=== PATIENT | female | born 1990 | race Caucasian/White ===

== ENCOUNTER 2020-05-07 14:58 | Emergency (ER) | payer MEDICAID ==
--- NOTE | 2020-05-07 16:02 | EDM.PDOC ---
ED HPI GENERAL MEDICAL PROBLEM - General Chief Complaint: Respiratory Problem Stated Complaint: 35 WEEKS PG/SOB AND COUGHING Time Seen by Provider: 05/07/20 15:22 Source of Information: Reports: Patient History Limitations: Reports: No Limitations - History of Present Illness INITIAL COMMENTS - FREE TEXT/NARRATIVE: Patient is a 29-year-old female presenting to the emergency department with request of being tested for COVID-19. Her daughter has been sick with flulike symptoms and is also being seen in the emergency department. Patient states that yesterday she developed a cough as well as some shortness of breath when she lies flat, however she does generally have shortness of breath lying flat as she is 35 weeks . Patient denies any fever or chills. She is had no abdominal pain, nausea, vomiting or diarrhea. She has no concerns with regard to the at this time. States the baby has been active. - Related Data Allergies Allergy/AdvReac Type Severity Reaction Status Date / Time No Known Allergies Allergy Verified 05/07/20 15:29 Home Meds: Home Meds Famotidine [Acid Controller] 10 mg PO DAILY 05/07/20 [History] Pnv No.95/Ferrous Fum/Folic AC [ Caplet] 1 tab PO DAILY 05/07/20 [History] Past Medical History Musculoskeletal 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: Fibromyalgia, RA - Infectious Disease History Infectious Disease 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: None Social & Family History - Tobacco Use Smoking Status *Q: Never Smoker Second Hand Smoke Exposure: No - Caffeine Use Caffeine Use: Reports: None - Recreational Drug Use Recreational Drug Use: No ED ROS GENERAL - Review of Systems Review Of Systems: See Below Constitutional: Reports: No Symptoms. Denies: Fever, Chills, Weakness HEENT: Reports: No Symptoms Respiratory: Reports: Shortness of Breath, Cough Cardiovascular: Reports: No Symptoms Endocrine: Reports: No Symptoms GI/Abdominal: Reports: No Symptoms : Reports: No Symptoms Musculoskeletal: Reports: No Symptoms Skin: Reports: No Symptoms Neurological: Reports: No Symptoms Psychiatric: Reports: No Symptoms Hematologic/Lymphatic: Reports: No Symptoms Immunologic: Reports: No Symptoms ED EXAM, GENERAL - Physical Exam Exam: See Below General Appearance: Alert, WD/WN, No Apparent Distress Respiratory/Chest: No Respiratory Distress, Lungs Clear, Normal Breath Sounds, No Accessory Muscle Use, Chest Non-Tender Cardiovascular: Normal Peripheral Pulses, Regular Rate, Rhythm, No Edema, No Gallop, No JVD, No Murmur, No Rub Neurological: Alert, Oriented, CN II-XII Intact, Normal Cognition, Normal Gait, Normal Reflexes, No Motor/Sensory Deficits Psychiatric: Normal Affect, Normal Mood Skin Exam: Warm, Dry, Intact, Normal Color, No Rash Course - Vital Signs Last Recorded V/S: Last Vital Signs Temp 97.6 F 05/07/20 15:26 Pulse 93 05/07/20 15:26 Resp 20 05/07/20 15: BP 124/79 05/07/20 15:26 Pulse Ox 96 05/07/20 15:26 - Re-Assessments/Exams Free Text/Narrative Re-Assessment/Exam: Patient is a 29-year-old female, 35 weeks gestation presenting to the ER with request to be tested for COVID-19. She has a slight cough that started yesterday as well as some shortness of breath with lying flat, however she states this is somewhat normal for her being 35 weeks . Denies any fever, chills, abdominal pain, nausea, vomiting, or diarrhea. Her exam is grossly unremarkable. We will complete a state send out coronavirus test and she will be notified of results. Discussed isolation precautions. Discharge instructions as documented. Departure - Departure Time of Disposition: 16:00 Disposition: Home, Self-Care 01 Condition: Good Clinical Impression: Cough, Encounter for screening laboratory testing for COVID-19 virus - Discharge Information *PRESCRIPTION DRUG MONITORING PROGRAM REVIEWED*: No *COPY OF PRESCRIPTION DRUG MONITORING REPORT IN PATIENT BRANDEN: No Referrals: PCP,None [Primary Care Provider] - Additional Instructions: You were seen in the emergency department with request to be tested for Covid19. A state send out coronavirus test has been completed. Recommend that you isolate until results are available. Lung sounds were clear and your vital signs were stable while in the emergency department. You will be notified of your coronavirus test results when they are available which is generally 24 to 72 hours. If you should develop any new or worsening symptoms of concern, please not hesitate to return to the emergency department. Sepsis Event Note (ED) - Evaluation Sepsis Screening Result: No Definite Risk - Focused Exam Vital Signs: Vital Signs Temp Pulse Resp BP Pulse Ox 05/07/20 15:26 97.6 F 93 20 124/79 96
== END 2020-05-07 16:40 | disposition home or self-care (01) ==
LOC: JD.ED 14:58
DX: O99.891 Other specified diseases and conditions complicating pregnancy (principal); R05 Cough; Z20.828 Contact with and (suspected) exposure to other viral communicable diseases; Z79.899 Other long term (current) drug therapy; Z3A.35 35 weeks gestation of pregnancy
CPT/HCPCS: 99282; 99284; U0002

== ENCOUNTER 2020-06-12 11:48 | Inpatient (IN) | payer MEDICAID ==
[2020-06-12] MEDS ORDERED: Ampicillin 2 GM in Sodium Chloride 0.9% 100 ML IV ONE (12:34)
[2020-06-12] MEDS ORDERED: Ondansetron 4 MG/2 ML SDV IVPUSH PRN (12:34)
[2020-06-12] MEDS ORDERED: Nalbuphine 10 MG/1 ML Vial IVPUSH PRN (12:34)
[2020-06-12] MEDS ORDERED: Sodium Chloride 0.9% 10 ML Syringe FLUSH PRN (12:34)
[2020-06-12] MEDS ORDERED: Lactated Ringers 1,000 ML IV SCH (12:45)
[2020-06-12] MEDS ORDERED: Oxytocin/Lactated Ringers 10 UNIT/1,000 ML BAG IV SCH ×3 (12:45→18:04)
--- NOTE | 2020-06-12 13:51 | PCM.LDHP ---
L&D History of Present Illness - General Date of Service: 06/12/20 Admit Problem/Dx: Patient Status Order with Admit Dx/Problem 06/12/20 12:35 Patient Status [ADT] Routine Admission Diagnosis/Problem Admission Diagnosis/Problem Source of Information: Patient History Limitations: Reports: No Limitations - History of Present Illness Introduction:: Sanna Arguello is a 29-year-old -0-0-2 at 40 weeks 0 days (NANNETTE 06/12/2020) by LMP consistent with 6-week ultrasound who presents with spontaneous rupture of membranes. She reports that at around 10:30-10:45 this morning she had a large gush of yellowish colored fluid. She continued to have leaking of fluid and decided to come in at that time. She reports that she was having irregular contractions and they have been getting stronger since her water had broken. She denies any vaginal bleeding. Reports good movement. Timing/Duration: Reports: sudden onset (with large gush of fluid at around 10:30-10:45 AM), constant/continuous (leaking of fluid), intermittent (contractions that are getting stronger) Location, : Reports: Abdomen, Pelvic Quality: Reports: Pressure, Throbbing Severity: Moderate Improves with: Reports: None Worsens with: Reports: None Associated Symptoms: Reports: vaginal fluid, large amount. Denies: vaginal bleeding, vaginal discharge Present Illness Comments:: Sanna Arguello is a 29-year-old -0-0-2 at 40 weeks 0 days (NANNETTE 06/12/2020) by LMP consistent with 6-week ultrasound who presents with spontaneous rupture of membranes. She started care with Dr. Oleary at 5 weeks gestational age and transferred care to Dr. Coats during the . Her was overall uncomplicated but she did have GBS contamination in the urine. She also had acid reflux disease during the and was using Pepcid and Tums as needed. She reports that she has a history of fibromyalgia and rheumatoid arthritis but has not been using any medications for pain due to these conditions. This is complicated by: * GBS bacteria -patient diagnosed with contamination of GBS in the urine at her initial labs. Patient recommended to have treatment with antibiotics in labor due to this GBS in the urine. * Rubella nonimmune -patient not immune to rubella and would recommend for MMR vaccine after delivery * Gastroesophageal reflux disease in -she reports that she has been having issues with acid reflux throughout her and has been using Pepcid and Tums for her acid reflux is treated. She did have some increased amounts of acid reflux on Saturday night into Saturday morning. * History of rheumatoid arthritis and fibromyalgia -no treatment needed for these conditions at this time [employer] history -0-0-2 G1: 05/17/2012, 39 weeks 0 days, , female , 7 pounds 14 ounces, epidural for anesthesia, no complications G2: 08/16/2016, 40 weeks 0 days, , female infant, 7 pounds 7 ounces, no complications G3: Current labs Blood type: O+ Antibody screen: Negative Urine culture: Contamination with GBS Rubella status: Nonimmune Hepatitis B surface antigen: Negative RPR: Negative HIV: Negative Gonorrhea: Negative Chlamydia: Negative One hour glucose tolerance test: 87 Second trimester hemoglobin: 12.2 on 02/19/2020 Platelets: 245 on 02/19/2020 GBS status: Positive based on GBS bacteriuria - Related Data Allergies/Adverse Reactions: Allergies Allergy/AdvReac Type Severity Reaction Status Date / Time No Known Allergies Allergy Verified 05/29/20 02:10 Home Medications: Home Meds Famotidine [Acid Controller] 10 mg PO DAILY 05/07/20 [History] Pnv No.95/Ferrous Fum/Folic AC [ Caplet] 1 tab PO DAILY 05/07/20 [History] Past Medical History [employer] 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: : 3 Para: 2 Musculoskeletal 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: Fibromyalgia, RA - Infectious Disease History Infectious Disease 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: None - Past Surgical History Dermatological Surgical 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: Other (See Below) (Surgery on left leg for varicose veins with burning of the veins per her report) Social & Family History - Tobacco Use Tobacco Use Status *Q: Never Tobacco User Tobacco Use Within Last Twelve Months: No - Tobacco Core Measures Tobacco Use/Smoking Within Last 30 Days: No Smokeless Tobacco Use in Last 30 Days: No - Caffeine Use Caffeine Use: Reports: None - Alcohol Use Alcohol Use History: No - Recreational Drug Use Recreational Drug Use: No Drug Use in Last 12 Months: No - Living Situation & Occupation Living situation: Reports: , with Spouse, with Family H&P Review of Systems - Review of Systems: Review Of Systems: See Below General: Denies: Fever, Chills, Malaise, Weakness HEENT: Reports: Sinus Congestion (Reports history of frontal sinus issues). Denies: Headaches, Hearing Changes, Rhinitis, Post Nasal Drip, Sore Throat, Visual Changes Pulmonary: Denies: Shortness of Breath, Wheezing, Pleuritic Chest Pain, Cough Cardiovascular: Denies: Chest Pain, Palpitations, Dyspnea on Exertion, Orthopnea Gastrointestinal: Reports: Nausea (In the evening of 06/10/2020 and morning of 06/11/2020), Vomiting (In the evening of 06/10/2020 and morning of 06/11/2020). Denies: Abdominal Pain, Constipation, Diarrhea Genitourinary: Denies: Dysuria, Frequency, Burning, Pain, Urgency Musculoskeletal: Reports: Back Pain (That has been worsening throughout the pre gnancy in the lower back) Skin: Denies: Rash, Lesions Psychiatric: Denies: Depression, Anxiety Neurological: Denies: Dizziness L&D Exam - Exam Exam: See Below - Vital Signs Weight: 125.509 kg - OB Specific Contraction Duration (sec): 30-60 Contraction Frequency (min): 5-12 Contraction Intensity: Moderate Movement: Active Heart Tones: Present Heart Tones per Min: 140 (+15 x 15 accelerations, one possible late deceleration at 13:34, no other decelerations) Heart Rate (FHR) Variability: Moderate (6-25 bmp) Presentation: Vertex Estimated Weight: 8-8.5 pounds by Andrea's - Jackson Score Jackson Score Cervix Position: Anterior Jackson Score Consistency: Soft Jackson Score Effacement: >80% (80%) Jackson Score Dilation: > 5 cm (5 cm) Jackson Score 's Station: -2 Jackson Score Total: 11 - Exam General: Alert, Oriented HEENT: Conjunctiva Clear, EOMI Neck: Supple, Trachea Midline Lungs: Clear to Auscultation, Normal Respiratory Effort Cardiovascular: Regular Rate, Regular Rhythm GI/Abdominal Exam: Soft, Non-Tender, No Distention, Other (Gravid). No: Guarding, Rigid, Rebound Genitourinary: Normal external exam, Other (Moderate amount of light meconium stained fluid coming from the vagina, fore bag noted on exam and ruptured using [place] without difficulty, mother and infant tolerated without difficulty) Extremities: Normal Inspection, No Pedal Edema Skin: Warm, Dry, Intact Psychiatric: Alert, Normal Affect, Normal Mood - Patient Data Lab Results Last 24 hrs: Laboratory Results - last 24 hr 06/12/20 Range/Units 12:55 WBC 13.82 H (3.98-10.04) K/mm3 RBC 3.90 L (3.98-5.22) M/mm3 Hgb 10.8 L (11.2-15.7) gm/dl Hct 34.2 (34.1-44.9) % MCV 87.7 (79.4-94.8) fl MCH 27.7 (25.6-32.2) pg MCHC 31.6 L (32.2-35.5) g/dl RDW Std Deviation 46.6 H (36.4-46.3) fL Plt Count 254 (182-369) K/mm3 MPV 11.2 (9.4-12.3) fl Neut % (Auto) 77.4 H (34.0-71.1) % Lymph % (Auto) 14.5 L (19.3-51.7) % [place] % (Auto) 6.4 (4.7-12.5) % Eos % (Auto) 1.0 (0.7-5.8) Baso % (Auto) 0.3 (0.1-1.2) % Neut # (Auto) 10.69 H (1.56-6.13) K/mm3 Lymph # (Auto) 2.01 (1.18-3.74) K/mm3 [place] # (Auto) 0.89 H (0.24-0.36) K/mm3 Eos # (Auto) 0.14 (0.04-0.36) K/mm3 Baso # (Auto) 0.04 (0.01-0.08) K/mm3 Result Diagrams: 06/12/20 12:55 - Problem List (1) 40 weeks gestation of SNOMED Code(s): 40119773 ICD Code: Z3A.40 - 40 WEEKS GESTATION OF Status: Acute Current Visit: Yes (2) GBS bacteriuria SNOMED Code(s): 06019781 ICD Code: R82.71 - BACTERIURIA Status: Acute Current Visit: Yes (3) Rubella non-immune status, antepartum SNOMED Code(s): 146493622 ICD Code: O99.891 - OTH DISEASES AND CONDITIONS COMPLICATING ; Z28.3 - UNDERIMMUNIZATION STATUS Status: Acute Current Visit: Yes (4) Meconium in amniotic fluid SNOMED Code(s): 326353960 ICD Code: P96.83 - MECONIUM STAINING Status: Acute Current Visit: Yes Problem List Initiated/Reviewed/Updated: Yes Orders Last 24hrs: Active Orders 24 hr Category Date Time Status Patient Status [ADT] Routine ADT 06/12/20 12:35 Active Activity as Tolerated [RC] PFP Care 06/12/20 12:34 Active Communication Order [RC] ASDIRECTED Care 06/12/20 12:34 Active Heart Tones [RC] ASDIRECTED Care 06/12/20 12:35 Active Non Stress Test [RC] PER UNIT ROUTINE Care 06/12/20 12:34 Active Notify Provider [RC] PFP Care 06/12/20 12:34 Active Notify Provider [RC] PRN Care 06/12/20 12:34 Active Peripheral IV Care [RC] . DIRECTED Care 06/12/20 12:35 Active Vital Signs [RC] PER UNIT ROUTINE Care 06/12/20 12:34 Active Regular Diet [DIET] Diet 06/12/20 Lunch Active BLOOD BANK HOLD SPECIMEN [BBK] Stat Lab 06/12/20 12:34 Ordered CORONAVIRUS COVID-19 HAILEE [MOLEC] Stat Lab 06/12/20 12:42 Received RAPID PLASMA REAGIN,RPR [CHEM] Routine Lab 06/12/20 12:55 Received Ampicillin 1 gm Med 06/12/20 16:30 Active Sodium Chloride 0.9% [Normal Saline] 100 ml IV Q4H Lactated Ringers [Ringers, Lactated] 1,000 ml Med 06/12/20 12:45 Active IV ASDIRECTED Nalbuphine [Nubain] Med 06/12/20 12:34 Active 10 mg IVPUSH Q2H PRN Ondansetron [Zofran] Med 06/12/20 12:34 Active 4 mg IVPUSH Q4H PRN Oxytocin/Lactated Ringers [Pitocin in LR 10 Units/1,000 Med 06/12/20 12:45 Active ML] 10 unit in 1,000 ml IV .CONTINUOUS Oxytocin/Lactated Ringers [Pitocin in LR 10 Units/1,000 Med 06/12/20 13:45 Ordered ML] 10 unit in 1,000 ml IV TITRATE Sodium Chloride 0.9% [Saline Flush] Med 06/12/20 12:34 Active 10 ml FLUSH ASDIRECTED PRN Electronic Heart Tones Ext w TOCO [WOMSER] Oth 06/12/20 12:34 Ordered Routine Electronic Heart Tones Internal [WOMSER] Per Unit Ot 06/12/20 12:34 Ordered Routine Peripheral IV Insertion Adult [OM.PC] Routine Oth 06/12/20 12:34 Ordered Resuscitation Status Routine Resus Stat 06/12/20 12:34 Ordered Medication Orders Ampicillin Sodium 1 gm/ Sodium (Chloride) 100 mls @ 200 mls/hr IV Q4H GIOVANNI Oxytocin/Lactated Ringer's (Pitocin In Lr 10 Units/1,000 Ml) 10 unit in 1,000 mls @ 100 mls/hr IV .CONTINUOUS GIOVANNI Lactated Ringer's (Ringers, Lactated) 1,000 mls @ 100 mls/hr IV ASDIRECTED GIOVANNI Nalbuphine HCl (Nubain) 10 mg IVPUSH Q2H PRN PRN Reason: Pain Ondansetron HCl (Zofran) 4 mg IVPUSH Q4H PRN PRN Reason: Nausea/Vomiting Sodium Chloride (Saline Flush) 10 ml FLUSH ASDIRECTED PRN PRN Reason: Keep Vein Open Assessment/Plan Comment:: Sanna Arguello is a 29-year-old -0-0-2 at 40 weeks 0 days entheses NANNETTE 06/12/2020) by LMP consistent with 6-week ultrasound with spontaneous rupture membranes complicated by GBS bacteria, meconium stained fluid, rubella nonimmune status, gastroesophageal reflux disease in and history of rheumatoid arthritis and fibromyalgia Artificial rupture of membrane of a fore bag performed on initial cervical evaluation that was completed without difficulty. Mother and tolerated without difficulty. Refer to observation for spontaneous rupture of membranes Start Pitocin for augmentation of labor with irregular contractions Continuous monitoring Place IV and have Lactated Ringer's at 125 ml/hr May have small amounts of regular diet Activity as tolerated May have epidural as desired Plans to breast-feed after delivery Start on ampicillin 2 g now and have 1 g every 4 hours after for GBS prophylaxis Recommend for MMR vaccine after delivery due to rubella nonimmune status Anticipate vaginal delivery unless otherwise indicated Som Terrazas MD 2:05 PM 06/12/2020
[2020-06-12] MEDS ORDERED: Ampicillin 1 GM in Sodium Chloride 0.9% 100 ML IV SCH (16:30)
[2020-06-12] MEDS ORDERED: Lidocaine 1% 50 ML MDV ONE (16:54)
[2020-06-12] MEDS ORDERED: Lidocaine 1% 50 ML MDV INJECT ONE (16:58)
--- NOTE | 2020-06-12 17:40 | PCM.DEL ---
L & D Note - General Info Date of Service: 06/12/20 Mother's Due Date: 06/12/20 - Delivery Note Labor: Spontaneous Delivery Method: Spontaneous Vaginal Delivery-Single Delivery Mode: Spontaneous Presentation: Left Occiput Anterior (MADDIE) Nuchal Cord: None Anesthesia Type: Local Anesthetic: Lidocaine (Xylocaine) 1% Plain Local Anesthetic Volume: Other (15 mL) Amniotic Fluid Description: Meconium Stained Episiotomy Type: None Laceration: 1st Degree (midline perineal, repaired with 4-0 Vicryl) Suture type: Vicryl Suture size: 4-0 Placenta: Intact, Spontaneous Cord: 3 Vessels Estimated Blood Loss: 450 Resuscitation Needed: No [place]: Bulb Syringe, Stimulated, Warmed, [place] Used Provider: Som Terrazas Score 1 min: 8 Score 5 min: 9 Second Stage Interventions: Reports: Pushing Effectively Delivery Comments (Free Text/Narrative):: Stage I: Sanna Arguello was admitted for spontaneous rupture of membranes. Patient states that she had meconium stained fluid when her water had broken at home. On admission her cervix was dilated to 5 cm. She was GBS positive and was started on ampicillin for GBS prophylaxis. She received a total of 2 doses prior to delivery. On initial evaluation she was noted to have a fore bag of fluid and artificial rupture membranes was performed with return of small amount of meconium stained fluid. She progressed to complete and pushing. Stage II: On 06/12/2020 she had a normal vaginal delivery of a live female i nfant at 16:43. Apgars of 8 & 9. Weight of 3410 g (7 lbs 8.3 oz). Length of 21.0 inches. There was no nuchal cord. was delivered in MADDIE position. The cord was doubly clamped and cut by father the infant. was placed on mother's abdomen. Stage III: She had a spontaneous delivery of an intact placenta in Seth presentation. Three vessel cord. She was given pitocin and fundal massage. She had first-degree midline perineal laceration that was having a small amount of bleeding. It was repaired with 4-0 Vicryl. During the vaginal repair there was noted to be some additional bleeding and small amount of amniotic membranes were removed from the uterus manually. The clot that had collected within the uterine cavity was expressed and removed at this time. After the vaginal repair was finished and the additional blood clot was removed from the uterus the patient had good uterine tone and minimal bleeding. Mom and baby were stable to recovery. EBL of 450 mL. Som Terrazas MD 5:33 PM 06/12/2020 - General Info Date of Service: 06/12/20 - Patient Data Vitals - Most Recent: Last Vital Signs Temp 37.3 C 06/12/20 12:34 Pulse Resp 14 06/12/20 12:34 BP 117/72 06/12/20 12:34 Pulse Ox 99 06/12/20 12:34 Weight - Most Recent: 125.509 kg I&O - Last 24 Hours: Intake & Output 06/12/20 06/12/20 06/12/20 06:59 14:59 22:59 Intake Total 200 Balance 200 Lab Results Last 24 Hours: Laboratory Results - last 24 hr 06/12/20 06/12/20 Range/Units 12:42 12:55 WBC 13.82 H (3.98-10.04) K/mm3 RBC 3.90 L (3.98-5.22) M/mm3 Hgb 10.8 L (11.2-15.7) gm/dl Hct 34.2 (34.1-44.9) % MCV 87.7 (79.4-94.8) fl MCH 27.7 (25.6-32.2) pg MCHC 31.6 L (32.2-35.5) g/dl RDW Std Deviation 46.6 H (36.4-46.3) fL Plt Count 254 (182-369) K/mm3 MPV 11.2 (9.4-12.3) fl Neut % (Auto) 77.4 H (34.0-71.1) % Lymph % (Auto) 14.5 L (19.3-51.7) % [place] % (Auto) 6.4 (4.7-12.5) % Eos % (Auto) 1.0 (0.7-5.8) Baso % (Auto) 0.3 (0.1-1.2) % Neut # (Auto) 10.69 H (1.56-6.13) K/mm3 Lymph # (Auto) 2.01 (1.18-3.74) K/mm3 [place] # (Auto) 0.89 H (0.24-0.36) K/mm3 Eos # (Auto) 0.14 (0.04-0.36) K/mm3 Baso # (Auto) 0.04 (0.01-0.08) K/mm3 SARS-CoV-2 RNA (HAILEE) Negative (NEGATIVE) Med Orders - Current: Current Medications Ampicillin Sodium 1 gm/ Sodium (Chloride) 100 mls @ 200 mls/hr IV Q4H GIOVANNI Last Admin: 06/12/20 16:30 Dose: 200 mls/hr Documented by: Oxytocin/Lactated Ringer's (Pitocin In Lr 10 Units/1,000 Ml) 10 unit in 1,000 mls @ 100 mls/hr IV .CONTINUOUS GIOVANNI Last Admin: 06/12/20 16:44 Dose: 100 mls/hr Documented by: Lactated Ringer's (Ringers, Lactated) 1,000 mls @ 100 mls/hr IV ASDIRECTED GIOVANNI Oxytocin/Lactated Ringer's (Pitocin In Lr 10 Units/1,000 Ml) 10 unit in 1,000 mls @ 12 mls/hr IV TITRATE GIOVANNI; Protocol Nalbuphine HCl (Nubain) 10 mg IVPUSH Q2H PRN PRN Reason: Pain Ondansetron HCl (Zofran) 4 mg IVPUSH Q4H PRN PRN Reason: Nausea/Vomiting Sodium Chloride (Saline Flush) 10 ml FLUSH ASDIRECTED PRN PRN Reason: Keep Vein Open Discontinued Medications Ampicillin Sodium 2 gm/ Sodium (Chloride) 100 mls @ 200 mls/hr IV ONETIME ONE Stop: 06/12/20 13:03 Last Admin: 06/12/20 12:55 Dose: 200 mls/hr Documented by: Lidocaine HCl (Xylocaine 1%) Confirm Administered Dose 50 ml .ROUTE .STK-MED ONE Stop: 06/12/20 16:55 Last Admin: 06/12/20 17:00 Dose: Not Given Documented by: Lidocaine HCl (Xylocaine 1%) 10 ml INJECT ONETIME ONE Stop: 06/12/20 16:59 Last Admin: 06/12/20 17:08 Dose: 10 ml Documented by: - Problem List & Annotations (1) 40 weeks gestation of SNOMED Code(s): 52910390 Code(s): Z3A.40 - 40 WEEKS GESTATION OF Status: Acute Current Visit: Yes (2) GBS bacteriuria SNOMED Code(s): 02894718 Code(s): R82.71 - BACTERIURIA Status: Acute Current Visit: Yes (3) Rubella non-immune status, antepartum SNOMED Code(s): 089184869 Code(s): O99.891 - OTH DISEASES AND CONDITIONS COMPLICATING ; Z28.3 - UNDERIMMUNIZATION STATUS Status: Acute Current Visit: Yes (4) Meconium in amniotic fluid SNOMED Code(s): 502176515 Code(s): P96.83 - MECONIUM STAINING Status: Acute Current Visit: Yes (5) Vaginal delivery SNOMED Code(s): 035457471 Code(s): O80 - ENCOUNTER FOR FULL-TERM UNCOMPLICATED DELIVERY Status: Acute Current Visit: Yes (6) First degree perineal laceration during delivery SNOMED Code(s): 147172378 Code(s): O70.0 - FIRST DEGREE PERINEAL LACERATION DURING DELIVERY Status: Acute Current Visit: Yes - Problem List Review Problem List Initiated/Reviewed/Updated: Yes - My Orders Last 24 Hours: My Active Orders 06/12/20 Lunch Regular Diet [DIET] 06/12/20 12:34 Activity as Tolerated [RC] PFP Communication Order [RC] ASDIRECTED Non Stress Test [RC] PER UNIT ROUTINE Notify Provider [RC] PFP Notify Provider [RC] PRN Vital Signs [RC] PER UNIT ROUTINE BLOOD BANK HOLD SPECIMEN [BBK] Stat Nalbuphine [Nubain] 10 mg IVPUSH Q2H PRN Ondansetron [Zofran] 4 mg IVPUSH Q4H PRN Sodium Chloride 0.9% [Saline Flush] 10 ml FLUSH ASDIRECTED PRN Electronic Heart Tones Ext w TOCO [WOMSER] Routine Electronic Heart Tones Internal [WOMSER] Per Unit Routine Peripheral IV Insertion Adult [OM.PC] Routine Resuscitation Status Routine 06/12/20 12:35 Patient Status [ADT] Routine Heart Tones [RC] ASDIRECTED Peripheral IV Care [RC] . DIRECTED 06/12/20 12:45 Lactated Ringers [Ringers, Lactated] 1,000 ml IV ASDIRECTED Oxytocin/Lactated Ringers [Pitocin in LR 10 Units/1,000 ML] 10 unit in 1,000 ml IV .CONTINUOUS 06/12/20 12:55 RAPID PLASMA REAGIN,RPR [CHEM] Routine 06/12/20 13:45 Oxytocin/Lactated Ringers [Pitocin in LR 10 Units/1,000 ML] 10 unit in 1,000 ml IV TITRATE 06/12/20 16:30 Ampicillin 1 gm Sodium Chloride 0.9% [Normal Saline] 100 ml IV Q4H 06/12/20 17:21 Patient Status Manage Transfer [TRANSFER] Routine 06/13/20 05:11 CBC WITH AUTO DIFF [HEME] AM - Plan Plan:: Sanna Arguello is a 29-year-old G3 now P3-0-0-3 s/p , PPD #0 complicated by GBS bacteria, meconium stained fluid, rubella nonimmune status, gastroesophageal reflux disease in and history of rheumatoid arthritis and fibromyalgia Admit to inpatient following normal spontaneous vaginal delivery Continue Pitocin per unit protocol following delivery of placenta and lactated Ringer's until tolerating regular diet Regular diet Vitals per unit routine Ibuprofen and Tylenol for pain control Assist with breast-feeding as needed Continue to monitor lochia Recommend for MMR vaccine after delivery secondary to rubella nonimmune status Plan for CBC in the morning secondary to EBL of 450 mL during delivery. Initial hemoglobin was 10.8. Anticipate discharge home on day #1 if is stable for discharge on PPD #1 Som Terrazas MD 5:33 PM 06/12/2020
[2020-06-12] MEDS ORDERED: Magnesium Hydroxide 400 MG/5 ML Susp 30 ML Cup PO PRN (18:04)
[2020-06-12] MEDS ORDERED: Measles, Mumps & Rubella Vaccine 0.5 ML SDV SUBCUT ONE (18:04)
[2020-06-12] MEDS ORDERED: Hydrocortisone Acetate 25 MG Supp RECTAL PRN (18:04)
[2020-06-12] MEDS ORDERED: Acetaminophen 325 MG Tab PO PRN (18:04)
[2020-06-12] MEDS ORDERED: Benzocaine/Menthol 20%-0.5% Spray 56 GM Canister TOP PRN (18:04)
[2020-06-12] MEDS ORDERED: Witch Hazel Medicated Pads 40/Jar TOP PRN (18:04)
[2020-06-12] MEDS ORDERED: Docusate Sodium 100 MG Cap PO PRN (18:04)
[2020-06-12] MEDS: Ibuprofen 600 MG Tab PO PRN (19:33)
[2020-06-13] MEDS: Ibuprofen 600 MG Tab PO PRN ×3 (01:35→13:41)
[2020-06-13] MEDS ORDERED: Ferrous Sulfate 324 MG Tab.EC PO SCH (07:00)
[2020-06-13] MEDS: Prenatal Multivitamin with Calcium/Folic Acid/Iron Tab PO SCH ×2 (07:35→12:58)
--- NOTE | 2020-06-13 10:35 | PCM.SN.2 ---
- Free Text/Narrative Note: Post Progress Note PPD #1 Subjective: Doing well overall. Ambulating without difficulty. Lochia minimal. Voiding without difficulty. Tolerating regular diet without nausea or vomiting. Pain controlled with oral medications. Bottlefeeding with minimal difficulty. Patient thinks that she may start pumping for feeding infant with breastmilk. Objective: Vitals: Vital Signs - 24 hr 06/12/20 06/12/20 06/13/20 12:34 20:40 03:33 Temperature 36.6 C 36.1 C Temperature [ 37.3 C Temporal] Pulse, 91 75 Peripheral Respiratory 14 14 14 Rate Blood Pressure 123/67 111/89 Blood Pressure 117/72 [Right Arm] O2 Sat by Pulse 99 98 97 Oximetry 06/13/20 07:36 Temperature 36.7 C Temperature [ Temporal] Pulse, 69 Peripheral Respiratory 16 Rate Blood Pressure 116/62 Blood Pressure [Right Arm] O2 Sat by Pulse 100 Oximetry Physical Exam General: Alert and oriented, no acute distress Lungs: Clear to auscultation bilaterally Heart: Regular rate and rhythm Abdomen: Soft, minimal appropriate tenderness, non-distended, fundus midline, nontender, and 1 fingerbreadth below the umbilicus Extremities: No edema Laboratory Tests 06/12/20 06/12/20 06/12/20 Range/Units 12:42 12:55 12:55 WBC 13.82 H (3.98-10.04) K/mm3 RBC 3.90 L (3.98-5.22) M/mm3 Hgb 10.8 L (11.2-15.7) gm/dl Hct 34.2 (34.1-44.9) % MCV 87.7 (79.4-94.8) fl MCH 27.7 (25.6-32.2) pg MCHC 31.6 L (32.2-35.5) g/dl RDW Std Deviation 46.6 H (36.4-46.3) fL Plt Count 254 (182-369) K/mm3 MPV 11.2 (9.4-12.3) fl Neut % (Auto) 77.4 H (34.0-71.1) % Lymph % (Auto) 14.5 L (19.3-51.7) % [place] % (Auto) 6.4 (4.7-12.5) % Eos % (Auto) 1.0 (0.7-5.8) Baso % (Auto) 0.3 (0.1-1.2) % Neut # (Auto) 10.69 H (1.56-6.13) K/mm3 Lymph # (Auto) 2.01 (1.18-3.74) K/mm3 [place] # (Auto) 0.89 H (0.24-0.36) K/mm3 Eos # (Auto) 0.14 (0.04-0.36) K/mm3 Baso # (Auto) 0.04 (0.01-0.08) K/mm3 RPR Non-reactive (NONREACTIVE) SARS-CoV-2 RNA (HAILEE) Negative (NEGATIVE) 06/13/20 Range/Units 06:00 WBC 16.67 H (3.98-10.04) K/mm3 RBC 3.76 L (3.98-5.22) M/mm3 Hgb 10.3 L (11.2-15.7) gm/dl Hct 32.7 L (34.1-44.9) % MCV 87.0 (79.4-94.8) fl MCH 27.4 (25.6-32.2) pg MCHC 31.5 L (32.2-35.5) g/dl RDW Std Deviation 45.2 (36.4-46.3) fL Plt Count 235 (182-369) K/mm3 MPV 11.1 (9.4-12.3) fl Neut % (Auto) 72.3 H (34.0-71.1) % Lymph % (Auto) 19.4 (19.3-51.7) % [place] % (Auto) 6.8 (4.7-12.5) % Eos % (Auto) 0.9 (0.7-5.8) Baso % (Auto) 0.2 (0.1-1.2) % Neut # (Auto) 12.04 H (1.56-6.13) K/mm3 Lymph # (Auto) 3.24 (1.18-3.74) K/mm3 [place] # (Auto) 1.14 H (0.24-0.36) K/mm3 Eos # (Auto) 0.15 (0.04-0.36) K/mm3 Baso # (Auto) 0.03 (0.01-0.08) K/mm3 RPR (NONREACTIVE) SARS-CoV-2 RNA (HAILEE) (NEGATIVE) ASSESSMENT: 29-year-old female -0-0-3 s/p normal vaginal delivery PPD #1, complicated by GBS bacteria, meconium stained fluid, rubella nonimmune status, gastroesophageal reflux disease in and history of rheumatoid arthritis and fibromyalgia PLAN: Doing well Bottlefeeding with minimal difficulty. Assist as needed with pumping breastmilk if patient desires she is going to start pumping. Lochia minimal. Continue to monitor for appropriate lochia. Continue routine care Minimal drop in her hemoglobin from 10.8 on admission down to 10.3 this morning. No evidence of anemia symptoms or problems following acute blood loss after delivery. Anticipate discharge home today Som Terrazas MD 10:36 AM 06/13/2020
--- NOTE | 2020-06-13 10:43 | PCM.DCSUM1 ---
Discharge Summary - Hospital Course Free Text/Narrative:: - General Info Date of Service: 06/12/20 Mother's Due Date: 06/12/20 - Delivery Note Labor: Spontaneous Infant Delivery Method: Spontaneous Vaginal Delivery-Single Infant Delivery Mode: Spontaneous Presentation: Left Occiput Anterior (MADDIE) Nuchal Cord: None Anesthesia Type: Local Anesthetic: Lidocaine (Xylocaine) 1% Plain Local Anesthetic Volume: Other (15 mL) Amniotic Fluid Description: Meconium Stained Episiotomy Type: None Laceration: 1st Degree (midline perineal, repaired with 4-0 Vicryl) Suture type: Vicryl Suture size: 4-0 Placenta: Intact, Spontaneous Cord: 3 Vessels Estimated Blood Loss: 450 Resuscitation Needed: No [place]: Bulb Syringe, Stimulated, Warmed, [place] Used Provider: Som Terrazas Score 1 min: 8 Score 5 min: 9 Second Stage Interventions: Reports: Pushing Effectively Delivery Comments (Free Text/Narrative):: Stage I: Sanna Arguello was admitted for spontaneous rupture of membranes. Patient states that she had meconium stained fluid when her water had broken at home. On admission her cervix was dilated to 5 cm. She was GBS positive and was started on ampicillin for GBS prophylaxis. She received a total of 2 doses prior to delivery. On initial evaluation she was noted to have a fore bag of fluid and artificial rupture membranes was performed with return of small amount of meconium stained fluid. She progressed to complete and pushing. Stage II: On 06/12/2020 she had a normal vaginal delivery of a live female infant at 16:43. Apgars of 8 & 9. Weight of 3410 g (7 lbs 8.3 oz). Length of 21.0 inches. There was no nuchal cord. Infant was delivered in MADDIE position. The cord was doubly clamped and cut by father the . Infant was placed on mother's abdomen. Stage III: She had a spontaneous delivery of an intact placenta in [place] presentation. Three vessel cord. She was given pitocin and fundal massage. She had first-degree midline perineal laceration that was having a small amount of bleeding. It was repaired with 4-0 Vicryl. During the vaginal repair there was noted to be some additional bleeding and small amount of amniotic membranes were removed from the uterus manually. The clot that had collected within the uterine cavity was expressed and removed at this time. After the vaginal repair was finished and the additional blood clot was removed from the uterus the patient had good uterine tone and minimal bleeding. Mom and baby were stable to recovery. EBL of 450 mL. Diagnosis: Stroke: No - Discharge Data Discharge Date: 06/13/20 Discharge Disposition: Home, Self-Care 01 Condition: Good - Referral to Home Health Primary Care Physician: Delmis Coats MD - Discharge Diagnosis/Problem(s) (1) 40 weeks gestation of SNOMED Code(s): 66278653 ICD Code: Z3A.40 - 40 WEEKS GESTATION OF Status: Acute Current Visit: Yes (2) GBS bacteriuria SNOMED Code(s): 08181812 ICD Code: R82.71 - BACTERIURIA Status: Acute Current Visit: Yes (3) Rubella non-immune status, antepartum SNOMED Code(s): 562179515 ICD Code: O99.891 - OTH DISEASES AND CONDITIONS COMPLICATING ; Z28.3 - UNDERIMMUNIZATION STATUS Status: Acute Current Visit: Yes (4) Meconium in amniotic fluid SNOMED Code(s): 223826698 ICD Code: P96.83 - MECONIUM STAINING Status: Acute Current Visit: Yes (5) Vaginal delivery SNOMED Code(s): 465411926 ICD Code: O80 - ENCOUNTER FOR FULL-TERM UNCOMPLICATED DELIVERY Status: Acute Current Visit: Yes (6) First degree perineal laceration during delivery SNOMED Code(s): 754921785 ICD Code: O70.0 - FIRST DEGREE PERINEAL LACERATION DURING DELIVERY Status: Acute Current Visit: Yes - Patient Summary/Data Complications: None Consults: None Hospital Course: Sanna Arguello was admitted for spontaneous rupture of membranes.she had meconium stained fluid with spontaneous rupture membranes at home. On admission her cervix was dilated to 5 cm. She was GBS positive by GBS bacteria and was started on ampicillin for GBS prophylaxis. She received a total of 2 doses prior to delivery. She was noted to have a fore bag of water and artificial rupture membranes was performed with return of small amount of meconium stained fluid. She progressed to complete and began pushing. On 06/12/2020 she had a normal vaginal delivery of a live female infant at 16:43. Apgars of 8 and 9. Weight of 3410 g (7 pounds 8.3 ounces). Her course was uneventful. Her pain was well controlled and she had minimal lochia. She was ambulating, tolerating a regular diet and voiding normally. She was bottlefeeding with minimal difficulty. She thinks that she may start pumping breastmilk for feeding with formula supplementation. She was afebrile and her hematocrit was 32.7 on PPD #1. She desired to be discharged home on the morning of PPD #1. Her blood type is O+. - Patient Instructions Diet: Regular Diet as Tolerated Activity: Apply Ice, As Tolerated Activity, Other: Nothing in the vagina for 6 weeks Driving: May Drive Today Showering/Bathing: May Shower Notify Provider of: Fever, Increased Pain, Swelling and Redness, Drainage, Nausea and/or Vomiting Other/Special Instructions: Please contact your physician's office if you have heavy vaginal bleeding enough to soak a pad in less than an hour for several hours. Monitor for any signs of an infection in the breasts with severe pain or redness of the breast. If you plan to not breast-feed or pump breastmilk I would recommend for you to wear a tight fitting sports bra or [place] bandage wrap around the breasts to help with decreasing milk production. I would also recommend for use of cold compresses to help with some of the pain that you may be having from engorgement of the milk glands. Avoid any nipple stimulation to reduce amount of milk production. - Discharge Plan *PRESCRIPTION DRUG MONITORING PROGRAM REVIEWED*: Not Applicable *COPY OF PRESCRIPTION DRUG MONITORING REPORT IN PATIENT BRANDEN: Not Applicable Home Medications: Home Meds Pnv No.95/Ferrous Fum/Folic AC [ [place]] 1 tab PO DAILY 05/07/20 [History] Acetaminophen [Tylenol] 650 mg PO Q6H PRN tablet 06/13/20 [Rx] Benzocaine/Menthol [Dermoplast Pain Relief [place]] 1 spray TOP ASDIRECTED PRN canister 06/13/20 [Rx] Docusate Sodium [Colace] 100 mg PO BID PRN cap 06/13/20 [Rx] Ferrous Sulfate 324 mg PO WITHBREAKFAST tab.ec 06/13/20 [Rx] Hydrocortisone Acetate [Anucort-HC] 25 mg RECTAL BID PRN supp 06/13/20 [Rx] Ibuprofen [Motrin] 600 mg PO Q6H PRN tablet 06/13/20 [Rx] anitha Christianson [Tucks] 1 pad TOP ASDIRECTED PRN pad 06/13/20 [Rx] Patient Handouts: Care of a Perineal Tear, Care After Vaginal Delivery Referrals: Delmis Coats MD [Primary Care Provider] - (Follow-up for routine visit in 3 to 6 weeks or earlier as needed.) - Discharge Summary/Plan Comment DC Time >30 min.: No - Patient Data Vitals - Most Recent: Last Vital Signs Temp 36.7 C 06/13/20 07:36 Pulse 69 06/13/20 07:36 Resp 16 06/13/20 07:36 BP 116/62 06/13/20 07:36 Pulse Ox 100 06/13/20 07:36 Weight - Most Recent: 125.509 kg I&O - Last 24 hours: Intake & Output 06/12/20 06/13/20 06/13/20 22:59 06:59 14:59 Intake Total 1200 Balance 1200 Lab Results - Last 24 hrs: Laboratory Results - last 24 hr 06/12/20 06/12/20 06/12/20 Range/Units 12:42 12:55 12:55 WBC 13.82 H (3.98-10.04) K/mm3 RBC 3.90 L (3.98-5.22) M/mm3 Hgb 10.8 L (11.2-15.7) gm/dl Hct 34.2 (34.1-44.9) % MCV 87.7 (79.4-94.8) fl MCH 27.7 (25.6-32.2) pg MCHC 31.6 L (32.2-35.5) g/dl RDW Std Deviation 46.6 H (36.4-46.3) fL Plt Count 254 (182-369) K/mm3 MPV 11.2 (9.4-12.3) fl Neut % (Auto) 77.4 H (34.0-71.1) % Lymph % (Auto) 14.5 L (19.3-51.7) % [place] % (Auto) 6.4 (4.7-12.5) % Eos % (Auto) 1.0 (0.7-5.8) Baso % (Auto) 0.3 (0.1-1.2) % Neut # (Auto) 10.69 H (1.56-6.13) K/mm3 Lymph # (Auto) 2.01 (1.18-3.74) K/mm3 [place] # (Auto) 0.89 H (0.24-0.36) K/mm3 Eos # (Auto) 0.14 (0.04-0.36) K/mm3 Baso # (Auto) 0.04 (0.01-0.08) K/mm3 RPR Non-reactive (NONREACTIVE) SARS-CoV-2 RNA (HAILEE) Negative (NEGATIVE) 06/13/20 Range/Units 06:00 WBC 16.67 H (3.98-10.04) K/mm3 RBC 3.76 L (3.98-5.22) M/mm3 Hgb 10.3 L (11.2-15.7) gm/dl Hct 32.7 L (34.1-44.9) % MCV 87.0 (79.4-94.8) fl MCH 27.4 (25.6-32.2) pg MCHC 31.5 L (32.2-35.5) g/dl RDW Std Deviation 45.2 (36.4-46.3) fL Plt Count 235 (182-369) K/mm3 MPV 11.1 (9.4-12.3) fl Neut % (Auto) 72.3 H (34.0-71.1) % Lymph % (Auto) 19.4 (19.3-51.7) % [place] % (Auto) 6.8 (4.7-12.5) % Eos % (Auto) 0.9 (0.7-5.8) Baso % (Auto) 0.2 (0.1-1.2) % Neut # (Auto) 12.04 H (1.56-6.13) K/mm3 Lymph # (Auto) 3.24 (1.18-3.74) K/mm3 [place] # (Auto) 1.14 H (0.24-0.36) K/mm3 Eos # (Auto) 0.15 (0.04-0.36) K/mm3 Baso # (Auto) 0.03 (0.01-0.08) K/mm3 RPR (NONREACTIVE) SARS-CoV-2 RNA (HAILEE) (NEGATIVE) Med Orders - Current: Current Medications Acetaminophen (Tylenol) 650 mg PO Q6H PRN PRN Reason: mild pain or fever Benzocaine/Menthol (Dermoplast Pain Relief [place]) 0 gm TOP ASDIRECTED PRN PRN Reason: Perineal Comfort Measure Last Admin: 06/12/20 18:48 Dose: 1 canister Documented by: Docusate Sodium (Colace) 100 mg PO BID PRN PRN Reason: Constipation Ferrous Sulfate (Ferrous Sulfate) 324 mg PO WITHBREAKFAST GIOVANNI Last Admin: 06/13/20 07:35 Dose: 324 mg Documented by: Hydrocortisone Acetate (Anucort-Hc) 25 mg RECTAL BID PRN PRN Reason: Hemorrhoid pain Oxytocin/Lactated Ringer's (Pitocin In Lr 10 Units/1,000 Ml) 10 unit in 1,000 mls @ 100 mls/hr IV TITRATE GIOVANNI; Protocol Ibuprofen (Motrin) 600 mg PO Q6H PRN PRN Reason: Mild pain or fever Last Admin: 06/13/20 07:36 Dose: 600 mg Documented by: Magnesium Hydroxide (Milk Of Magnesia) 30 ml PO BEDTIME PRN PRN Reason: Constipation Prenat Multivit/[place]/Iron/Folic Ac ( Plus Iron) 1 each PO DAILY [facility] Last Admin: 06/13/20 07:35 Dose: 1 each Documented by: Anitha Arreguinharis) 1 pad TOP ASDIRECTED PRN PRN Reason: Perineal Comfort Measure Last Admin: 06/12/20 18:48 Dose: 1 tub Documented by: Discontinued Medications Ampicillin Sodium 2 gm/ Sodium (Chloride) 100 mls @ 200 mls/hr IV ONETIME ONE Stop: 06/12/20 13:03 Last Admin: 06/12/20 12:55 Dose: 200 mls/hr Documented by: Ampicillin Sodium 1 gm/ Sodium (Chloride) 100 mls @ 200 mls/hr IV Q4H GIOVANNI Last Admin: 06/12/20 16:30 Dose: 200 mls/hr Documented by: Oxytocin/Lactated Ringer's (Pitocin In Lr 10 Units/1,000 Ml) 10 unit in 1,000 mls @ 100 mls/hr IV .CONTINUOUS GIOVANNI Last Admin: 06/12/20 16:44 Dose: 100 mls/hr Documented by: Lactated Ringer's (Ringers, Lactated) 1,000 mls @ 100 mls/hr IV ASDIRECTED GIOVANNI Oxytocin/Lactated Ringer's (Pitocin In Lr 10 Units/1,000 Ml) 10 unit in 1,000 mls @ 12 mls/hr IV TITRATE GIOVANNI; Protocol Lidocaine HCl (Xylocaine 1%) Confirm Administered Dose [address]-MED ONE Stop: 06/12/20 16:55 Last Admin: 06/12/20 17:00 Dose: Not Given Documented by: Lidocaine HCl (Xylocaine 1%) 10 ml INJECT ONETIME ONE Stop: 06/12/20 16:59 Last Admin: 06/12/20 17:08 Dose: 10 ml Documented by: Measles/Mumps/Rubella Vaccine Live (M-M-R Ii Vaccine) 0.5 ml SUBCUT .ONCE ONE Stop: 06/12/20 18:05 Last Admin: 06/12/20 22:08 Dose: Not Given Documented by: Nalbuphine HCl (Nubain) 10 mg IVPUSH Q2H PRN PRN Reason: Pain Ondansetron HCl (Zofran) 4 mg IVPUSH Q4H PRN PRN Reason: Nausea/Vomiting Sodium Chloride (Saline Flush) 10 ml FLUSH ASDIRECTED PRN PRN Reason: Keep Vein Open
== END 2020-06-13 16:59 | disposition home or self-care (01) | DRG 807 ==
LOC: JD.OBCHECK 11:48 → JD.OB 12:35 → OBSVTOIN 16:43 → JD.OB 16:43 → JD.NSY 16:44 → JD.OB 17:40
PROVIDERS: ADMIT Obstetrics & Gynecology; ATTEND Obstetrics & Gynecology
PROC: 10E0XZZ Delivery of Products of Conception, External Approach (ICD-10-PCS; principal; 2020-06-12)
PROC: 0HQ9XZZ Repair Perineum Skin, External Approach (ICD-10-PCS; 2020-06-12)
PROC: 0UQGXZZ Repair Vagina, External Approach (ICD-10-PCS; 2020-06-12)
PROC: 10907ZC Drainage of Amniotic Fluid, Therapeutic from Products of Conception, Via Natural or Artificial Opening (ICD-10-PCS; 2020-06-12)
PROC: 4A1HXCZ Monitoring of Products of Conception, Cardiac Rate, External Approach (ICD-10-PCS; 2020-06-12)
DX: O48.0 Post-term pregnancy (principal); Z37.0 Single live birth; O99.824 Streptococcus B carrier state complicating childbirth; R82.71 Bacteriuria; O99.892 Other specified diseases and conditions complicating childbirth; O77.0 Labor and delivery complicated by meconium in amniotic fluid; Z28.3 Underimmunization status; O70.0 First degree perineal laceration during delivery; Z3A.40 40 weeks gestation of pregnancy; Z79.899 Other long term (current) drug therapy; Z79.01 Long term (current) use of anticoagulants; O99.62 Diseases of the digestive system complicating childbirth; K21.9 Gastro-esophageal reflux disease without esophagitis; Z87.39 Personal history of other diseases of the musculoskeletal system and connective tissue; Z20.828 Contact with and (suspected) exposure to other viral communicable diseases
CPT/HCPCS: 36415; 59025; 59409; 85025; 86592; A9270-GY; J0290; J2001; J2590; J7050; U0002

== ENCOUNTER 2020-10-15 18:11 | Emergency (ER) | payer MEDICAID ==
[2020-10-15] MEDS ORDERED: Sodium Chloride 0.9% 10 ML Syringe FLUSH PRN (19:33)
--- NOTE | 2020-10-15 19:41 | EDM.PDOC ---
ED HPI GENERAL MEDICAL PROBLEM - General Chief Complaint: Genitourinary Problem Stated Complaint: POSSIBLE MISCARRIAGE/ PAIN Time Seen by Provider: 10/15/20 18:46 Source of Information: Reports: Patient History Limitations: Reports: No Limitations - History of Present Illness INITIAL COMMENTS - FREE TEXT/NARRATIVE: 30 year old female presents to the ED with complaints of cramping and vaginal bleeding. Pt reports that she just had a baby 4 months ago and has had one period since then. Unknown of the specific date, she just states that it was early August. Pt reports that yesterday she started having heavy vaginal bleeding and severe cramping. States that she thought that it was her period, however it was the worst cramps that she has ever had and they radiated around to her back and caused her legs to go numb. She states that this resolved and the cramping has gotten better and she is only spotting now, however she took a test today and she states that it was positive. Pt also has a rash to her abdomen, axilla and back that started about 3 days ago. The patient states that she just started taking duloxetine 4 days ago. States that the rash is pruritic at times. She denies and recent fever, chills, nausea, vomiting, diarrhea, headache or cough. 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: cervical dysplasia, Colposcopy + HPV Musculoskeletal 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: Fibromyalgia, RA, Other (See Below) Other Musculoskeletal History: Bone Spur in L Hip Neurological 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: Seizure Other Neuro History: petit mal seizures as child Psychiatric 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: Depression Endocrine/Metabolic 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: Obesity/BMI 30+ - Infectious Disease History Infectious Disease 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: None - Past Surgical History Dermatological Surgical 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: Other (See Below) (Surgery on left leg for varicose veins with burning of the veins per her report) Social & Family History - Family History Family Medical History: Unobtainable - Caffeine Use Caffeine Use: Reports: Coffee - Recreational Drug Use Recreational Drug Use: Yes Recreational Drug Type: Reports: Marijuana/Hashish - Living Situation & Occupation Living situation: Reports: , with Spouse, with Family ED ROS GENERAL - Review of Systems Review Of Systems: Comprehensive ROS is negative, except as noted in HPI. ED EXAM - Physical Exam Exam: See Below Exam Limited By: No Limitations General Appearance: Alert, WD/WN, No Apparent Distress Ears: Normal External Exam, Hearing Grossly Normal Nose: Normal Inspection, Normal Mucosa Throat/Mouth: Normal Inspection, Normal Lips, Normal Voice, No Airway Compromise Head: Atraumatic, Normocephalic Neck: Normal Inspection, Supple, Non-Tender, Full Range of Motion Respiratory/Chest: No Respiratory Distress, Lungs Clear, Normal Breath Sounds, No Accessory Muscle Use, Chest Non-Tender Cardiovascular: Normal Peripheral Pulses, Regular Rate, Rhythm, No Edema, No Murmur GI/Abdominal Exam: Normal Bowel Sounds, Soft, No Distention, Tender (bilateral lower quadrants) Rectal Exam: Deferred Back Exam: Normal Inspection, Full Range of Motion Extremities: Normal Inspection, Normal Range of Motion, Non-Tender, No Pedal Edema, Normal Capillary Refill Neurological: Alert, Oriented, Normal Cognition Psychiatric: Normal Affect, Normal Mood Skin Exam: Warm, Dry, Intact, Normal Color, Rash (scattered papular rash noted to abdomen, lower back, and axilla). No: No Rash Lymphatic: No Adenopathy Course - Vital Signs Text/Narrative:: 30 year old with heavy vaginal bleeding and lower abdominal cramping which radiated to her back that started yesterday. States that the cramping has become much less severe and that she only has spotting noted now, however she took a test this morning and it was positive. She states that she has also developed a rash to her abdomen, axilla and rash that started about 3 days ago. She was started on duloxetine 4 days ago. Pt has a papular type of rash noted to her abdomen, axilla, and her lower back. I have ordered labs, ua, sali ne lock and a transvaginal ultrasound. Last Recorded V/S: Last Vital Signs Temp 98.3 F 10/15/20 18:24 Pulse 100 10/15/20 18:24 Resp 16 10/15/20 18:24 BP 131/70 10/15/20 18:24 Pulse Ox 98 10/15/20 18:24 - Orders/Labs/Meds Orders: Active Orders 24 hr Category Date Time Status OB Transvaginal [US] Stat Exams 10/15/20 19:33 Taken PATIENT RETYPE [BBK] Routine Lab 10/15/20 21:00 Ordered UA RFX ADIEL AND CULT IF INDIC [URIN] Stat Lab 10/15/20 19:34 Ordered Sodium Chloride 0.9% [Saline Flush] Med 10/15/20 19:33 Active 10 ml FLUSH ASDIRECTED PRN Saline Lock Insert [OM.PC] Stat Oth 10/15/20 19:33 Ordered Medication Orders Sodium Chloride (Sodium Chloride 0.9% 10 Ml Syringe) 10 ml FLUSH ASDIRECTED PRN PRN Reason: Keep Vein Open Last Admin: 10/15/20 19:58 Dose: 10 ml Documented by: SHITAL Labs: Laboratory Tests 10/15/20 10/15/20 10/15/20 Range/Units 19:50 19:50 19:50 WBC 11.97 H (3.98-10.04) K/mm3 RBC 4.64 (3.98-5.22) M/mm3 Hgb 12.4 D (11.2-15.7) gm/dl Hct 38.7 (34.1-44.9) % MCV 83.4 D (79.4-94.8) fl MCH 26.7 (25.6-32.2) pg MCHC 32.0 L (32.2-35.5) g/dl RDW Std Deviation 43.5 (36.4-46.3) fL Plt Count 340 D (182-369) K/mm3 MPV 10.2 (9.4-12.3) fl Neut % (Auto) 66.4 (34.0-71.1) % Lymph % (Auto) 23.4 (19.3-51.7) % Arthur % (Auto) 7.1 (4.7-12.5) % Eos % (Auto) 2.2 (0.7-5.8) Baso % (Auto) 0.6 (0.1-1.2) % Neut # (Auto) 7.96 H (1.56-6.13) K/mm3 Lymph # (Auto) 2.80 (1.18-3.74) K/mm3 Arthur # (Auto) 0.85 H (0.24-0.36) K/mm3 Eos # (Auto) 0.26 (0.04-0.36) K/mm3 Baso # (Auto) 0.07 (0.01-0.08) K/mm3 HCG, Quant 441.0 mIU/mL Blood Type O POSITIVE Meds: Medications Generic Name Dose Route Start Last Admin Trade Name Freq PRN Reason Stop Dose Admin Sodium Chloride 10 ml 10/15/20 19:33 10/15/20 19:58 Sodium Chloride 0.9% 10 Ml Syringe FLUSH 10 ml ASDIRECTED PRN Administration Keep Vein Open - Re-Assessments/Exams Free Text/Narrative Re-Assessment/Exam: 10/15/20 20:50 vRad impression transvaginal US: 1. Intrauterine gestational sac is not identified on this examination. 2. Corpus luteum cyst in the right ovary. 3. There is a trace of free fluid in the cul-de-sac. Comments: Consider close follow-up with beta-hCG and ultrasound 10/15/20 21:12 Hematology reveals a WBC of 11.97, HGB 12.4, HCT 38.7 HCT, Quant 441.0 Pt does have a history of PCOS and it is possible that she had a ruptured ovarian cyst. She states that her cramping in minimal and that she is now only spotting, it is also possible that the patient had a miscarriage. Pt will be discharged to home with recommendations that she follow up with her MOLDING MACHINE SETTER this week. Also recommend that she stop taking her duloxetine as this was likely the cause of the rash. Departure - Departure Time of Disposition: 21:13 Disposition: Home, Self-Care 01 Condition: Good Clinical Impression: Cyst of ovary Qualifiers: Weeks of gestation: less than 8 weeks Qualified Code(s): Z3A.01 - Less than 8 weeks gestation of - Discharge Information Instructions: Ovarian Cyst, [id number] Referrals: Gina Romano NP [Primary Care Provider] - Forms: ED Department Discharge Additional Instructions: You were seen in the emergency department today with complaints of vaginal bleeding and lower abdominal cramping that started yesterday. Labs and a transvaginal ultrasound were completed. You are . However there was not an intrauterine gestational sac identified on the examination. Recommend that you follow-up with your MOLDING MACHINE SETTER early this week. May take tylenol or ibuprofen for cramping. Should your condition worsen or change, do not hesitate returning to the Emergency Department. Sepsis Event Note (ED) - Evaluation Sepsis Screening Result: No Definite Risk - Focused Exam Vital Signs: Vital Signs Temp Pulse Resp BP Pulse Ox 10/15/20 18:24 98.3 F 100 16 131/70 98 - My Orders Last 24 Hours: My Active Orders 10/15/20 19:33 OB Transvaginal [US] Stat Sodium Chloride 0.9% [Saline Flush] 10 ml FLUSH ASDIRECTED PRN Saline Lock Insert [OM.PC] Stat 10/15/20 19:34 UA RFX ADIEL AND CULT IF INDIC [URIN] Stat 10/15/20 21:00 PATIENT RETYPE [BBK] Routine - Assessment/Plan Last 24 Hours: My Active Orders 10/15/20 19:33 OB Transvaginal [US] Stat Sodium Chloride 0.9% [Saline Flush] 10 ml FLUSH ASDIRECTED PRN Saline Lock Insert [OM.PC] Stat 10/15/20 19:34 UA RFX ADIEL AND CULT IF INDIC [URIN] Stat 10/15/20 21:00 PATIENT RETYPE [BBK] Routine
--- NOTE | 2020-10-16 09:55 | US ---
First trimester obstetrical ultrasound: Multiple real-time images were obtained transvaginally. No intrauterine gestational sac is appreciated. Endometrial thickness is increased measuring about 2.0 cm. No adnexal abnormalities are definitely appreciated. Small hypoechoic area is seen within the right ovary believed to represent minimal corpus luteum cyst. Ovaries are otherwise unremarkable. No adnexal abnormalities are appreciated. Impression: 1. No intrauterine gestational sac or adnexal abnormalities are seen. 2. If patient continues to have increasing beta hCG, follow-up study could then be considered in 11-14 days. Diagnostic code #3 I agree with preliminary report from [facility], finalized on 10/15/20, 9:43 PM CDT
== END 2020-10-15 21:23 | disposition home or self-care (01) ==
LOC: JD.ED 18:11
DX: O34.81 Maternal care for other abnormalities of pelvic organs, first trimester (principal); N83.201 Unspecified ovarian cyst, right side; O99.211 Obesity complicating pregnancy, first trimester; Z3A.01 Less than 8 weeks gestation of pregnancy
CPT/HCPCS: 36415; 76817; 76817-26; 84702; 85025; 86900; 86901; 99283; 99285-25

== ENCOUNTER 2021-01-23 18:29 | Emergency (ER) | payer MEDICAID ==
[2021-01-23] MEDS ORDERED: Ketorolac 60 MG/2 ML SDV IM ONE (19:07)
--- NOTE | 2021-01-23 19:10 | EDM.PDOC ---
ED HPI GENERAL MEDICAL PROBLEM - General Chief Complaint: Back Pain or Injury Stated Complaint: back pain Time Seen by Provider: 01/23/21 18:56 Source of Information: Reports: Patient History Limitations: Reports: No Limitations - History of Present Illness INITIAL COMMENTS - FREE TEXT/NARRATIVE: 30-year-old female presents to the emergency department with complaints of mid and low back pain. She states that this started earlier today while she was at work. She denies any history of any back injury or surgeries. She denies any having listing. She states that 2 days prior to today she has just been laying around at home on the couch. She states that pain is felt bilaterally mid and low back. She states she tried to use some Center balm today and it did not help. She has not taken any Tylenol or ibuprofen for the discomfort. She states she does have a history of fibromyalgia and rheumatoid arthritis however she does not take any prescription medications for this. She denies any radiation down her hips and the back of her leg. She is able to ambulate without difficulty. Lower Back Pain Score (Numeric/FACES): 8 - Related Data Allergies Allergy/AdvReac Type Severity Reaction Status Date / Time No Known Allergies Allergy Verified 01/23/21 18:40 Home Meds: Home Meds . 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: cervical dysplasia, Colposcopy + HPV Musculoskeletal 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: Arthritis, Fibromyalgia, RA, Other (See Below) Other Musculoskeletal History: Bone Spur in L Hip Neurological 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: Seizure Other Neuro History: petit mal seizures as child Psychiatric 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: Anxiety, Depression Endocrine/Metabolic 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: Obesity/BMI 30+ - Infectious Disease History Infectious Disease 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: Chicken Pox - Past Surgical History Dermatological Surgical 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: Other (See Below) (Surgery on left leg for varicose veins with burning of the veins per her report) Social & Family History - Family History Family Medical History: Unobtainable - Tobacco Use Tobacco Use Status *Q: Current Every Day Tobacco User Years of Tobacco use: 3 Packs/Tins Daily: 0.3 - Caffeine Use Caffeine Use: Reports: Coffee, Tea - Recreational Drug Use Recreational Drug Use: No - Living Situation & Occupation Living situation: Reports: , with Spouse, with Family ED ROS GENERAL - Review of Systems Review Of Systems: Comprehensive ROS is negative, except as noted in HPI. ED EXAM,LOWER BACK PAIN/INJURY - Physical Exam Exam: See Below Exam Limited By: No Limitations General Appearance: Alert, WD/WN, No Apparent Distress Ears: Normal External Exam, Hearing Grossly Normal Nose: Normal Inspection Throat/Mouth: Normal Inspection, Normal Lips, Normal Voice, No Airway Compromise Head: Atraumatic Neck: Normal Inspection, Supple, Non-Tender, Full Range of Motion Respiratory/Chest: No Respiratory Distress, No Accessory Muscle Use Cardiovascular: Normal Peripheral Pulses, Regular Rate, Rhythm GI/Abdominal: No Distention (Female) Exam: Deferred Rectal (Female) Exam: Deferred Back Exam: Normal Inspection, Full Range of Motion, Paraspinal Tenderness (Thoracic and lumbar area), Vertebral Tenderness (Lumbar area) Extremities: Normal Inspection, Normal Range of Motion, Non-Tender, No Pedal Edema, Normal Capillary Refill Neurological: Alert, Normal Mood/Affect, Normal Gait, Oriented x 3 Psychiatric: Normal Affect, Normal Mood Skin Exam: Warm, Dry, Intact, Normal Color, No Rash Lymphatic: No Adenopathy Course - Vital Signs Text/Narrative:: Patient presents with mid and low back pain primarily in the paraspinal areas bilaterally that started earlier today. She denies any injury or falls. She denies any history of back surgeries or injuries. She states she did try to put some Center balm on the area and this did not help. She has not taken any Tylenol or ibuprofen for the discomfort. She is not having any issues with bowel or bladder. She denies any radiation of the pain down her buttocks or back of her legs. I have ordered an x-ray of the thoracic and lumbar spine. I have also ordered for her to receive a dose of Toradol 60 mg IM Last Recorded V/S: Last Vital Signs Temp 97.5 F 01/23/21 18:37 Pulse 78 01/23/21 18:37 Resp 18 01/23/21 18:37 BP 147/85 H 01/23/21 18:37 Pulse Ox 96 01/23/21 18:37 - Orders/Labs/Meds Orders: Active Orders 24 hr Category Date Time Status Lumbar Spine 2 or 3V [CR] Stat Exams 01/23/21 19:04 Taken Thoracic Spine 2V [CR] Stat Exams 01/23/21 19:04 Taken Meds: Medications Discontinued Medications Generic Name Dose Route Start Last Admin Trade Name [place] PRN Reason Stop Dose Admin Ketorolac Tromethamine 60 mg 01/23/21 19:07 01/23/21 19:23 Ketorolac 60 Mg/2 Ml Sdv IM 01/23/21 19:08 60 mg ONETIME ONE Administration - Re-Assessments/Exams Free Text/Narrative Re-Assessment/Exam: 01/23/21 19:39 X rays of thoracic and lumbar spine were reviewed by myself and Dr. Pulliam and nothing acute is appreciated. Official radiologist report is pending. Pt will be discharged to home with recommendation that she take Tylenol and Ibuprofen every 4 hours as needed for pain. 01/23/21 19:44 Radiologist impression AP and lateral views of thoracic spine: 1. Mild diffuse disc space narrowing with mild endplate osteophytes throughout a large portion of the thoracic spine. No acute subluxation or acute fracture is seen Radiologist impression AP and lateral view of the lumbar spine: 1. Scoliosis. 2. Other portions of the two-view lumbar spine are within normal limits. Departure - Departure Time of Disposition: 19:45 Disposition: Home, Self-Care 01 Condition: Good Clinical Impression: Back pain Qualifiers: Back pain location: back pain in unspecified location Chronicity: acute Back pain laterality: bilateral Qualified Code(s): M54.9 - Dorsalgia, unspecified - Discharge Information Instructions: Pain Medicine Instructions, [id number] Referrals: Gina Romano NP [Primary Care Provider] - Forms: ED Department Discharge Additional Instructions: You were seen in the emergency department today with complaints of middle and low back pain that started today. X-ray of the thoracic and lumbar spine were completed and these did not show any acute injury or abnormalities. Suspect the discomfort is all related to muscular low tenderness. You were given a shot of pain medication while in the emergency department. This should work for about the next 6 hours. Recommend that you take Tylenol 650 mg alternating every 4 hours with ibuprofen 600 mg for the next 48 hours. Use ice 30 minutes at a time every 3 hours while awake. After the next 48 hours may use heat for comfort. Should your condition worsen or change, do not hesitate returning to the emergency department. Recommend that you follow-up with your primary care provider in about a week if not better. Sepsis Event Note (ED) - Evaluation Sepsis Screening Result: No Definite Risk - Focused Exam Vital Signs: Vital Signs Temp Pulse Resp BP Pulse Ox 01/23/21 18:37 97.5 F 78 18 147/85 H 96 - My Orders Last 24 Hours: My Active Orders 01/23/21 19:04 Lumbar Spine 2 or 3V [CR] Stat Thoracic Spine 2V [CR] Stat - Assessment/Plan Last 24 Hours: My Active Orders 01/23/21 19:04 Lumbar Spine 2 or 3V [CR] Stat Thoracic Spine 2V [CR] Stat
--- NOTE | 2021-01-23 19:42 | CR ---
Thoracic spine: AP and lateral views of the thoracic spine were obtained. Comparison: No prior thoracic spine imaging is available. Mild diffuse disc space narrowing is seen within a large portion of the thoracic spine. Vertebral body heights are maintained. Very minimal scattered endplate osteophytes are also noted within the thoracic spine. Pedicles are intact. No acute subluxation or acute fracture is seen. Impression: 1. Mild diffuse disc space narrowing with mild endplate osteophytes throughout a large portion of the thoracic spine. Diagnostic code #3
--- NOTE | 2021-01-23 19:42 | CR ---
Lumbar spine: AP and lateral views of the lumbar spine were obtained. Comparison: No prior lumbar spine imaging is available. Mild scoliosis is noted. Vertebral body heights and disc spaces are fairly well preserved. Pedicles are intact. Visualized transverse and spinous processes are intact. Sacroiliac joints are normal. Impression: 1. Scoliosis. 2. Other portions of the 2 view lumbar spine study are within normal limits. Diagnostic code #2
== END 2021-01-23 19:54 | disposition home or self-care (01) ==
LOC: JD.ED 18:29
DX: M54.6 Pain in thoracic spine (principal); M54.5 Low back pain; E66.9 Obesity, unspecified; Z68.41 Body mass index [BMI] 40.0-44.9, adult; Z72.0 Tobacco use
CPT/HCPCS: 72070; 72100; 96372; 99283; J1885

== ENCOUNTER 2021-02-11 15:08 | Emergency (ER) | payer MEDICAID ==
--- NOTE | 2021-02-11 17:33 | EDM.PDOC ---
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 Took test yesterday was found to be positive. Last menstrual period was January 12, therefore she is due for her period. She does have a history of previous miscarriage in September. Denies any physiologic signs of such as nausea or breast tenderness. Lower Pelvic Pain Score (Numeric/FACES): 5 - Related Data Allergies Allergy/AdvReac Type Severity Reaction Status Date / Time No Known Allergies Allergy Verified 01/23/21 18:40 Home Meds: Home Meds . [No Known Home Meds] 01/23/21 [History] Past Medical History HEENT 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: Other (See Below) Other HEENT History: cysts in sinuses Gastrointestinal 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: GERD SENIOR ELECTRICAL ENGINEER 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: , Spontaneous Other SENIOR ELECTRICAL ENGINEER History: cervical dysplasia, Colposcopy + HPV; all vaginal deliveries Musculoskeletal 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: Arthritis, Fibromyalgia, RA, Other (See Below) Other Musculoskeletal History: Bone Spur in L Hip Neurological 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: Seizure Other Neuro History: petit mal seizures as child Psychiatric 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: Anxiety, Depression Endocrine/Metabolic 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: Obesity/BMI 30+ - Infectious Disease History Infectious Disease 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: Chicken Pox - Past Surgical History Dermatological Surgical 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: Other (See Below) Social & Family History - Family History Family Medical History: Unobtainable - Tobacco Use Years of Tobacco use: 2 Packs/Tins Daily: 1 - Caffeine Use Caffeine Use: Reports: Coffee, Tea - Recreational Drug Use Recreational Drug Use: No - Living Situation & Occupation Living situation: Reports: , with Spouse, with Family ED ROS GENERAL - Review of Systems Review Of Systems: Comprehensive ROS is negative, except as noted in HPI. ED EXAM - Physical Exam Exam: See Below General Appearance: Alert, WD/WN, No Apparent Distress Respiratory/Chest: No Respiratory Distress, Lungs Clear, Normal Breath Sounds, No Accessory Muscle Use, Chest Non-Tender Cardiovascular: Normal Peripheral Pulses, Regular Rate, Rhythm, No Edema, No Gallop, No JVD, No Murmur, No Rub GI/Abdominal Exam: Normal Bowel Sounds, Soft, No Organomegaly, No Distention, No Abnormal Bruit, No Mass, Pelvis Stable, Tender (Mild suprapubic tenderness) Neurological: Alert, Oriented, CN II-XII Intact, Normal Cognition, Normal Gait, Normal Reflexes, No Motor/Sensory Deficits Psychiatric: Normal Affect, Normal Mood Course - Vital Signs Last Recorded V/S: Last Vital Signs Temp 97.1 F 02/11/21 15:19 Pulse 81 02/11/21 15:19 Resp 20 02/11/21 15:19 BP 129/78 02/11/21 15:19 Pulse Ox 96 02/11/21 15:19 - Orders/Labs/Meds Orders: Active Orders 24 hr Category Date Time Status OB Transvaginal [US] Stat Exams 02/11/21 15:42 Taken Labs: Laboratory Tests 02/11/21 02/11/21 02/11/21 Range/Units 15:50 15:55 15:55 WBC 9.76 (3.98-10.04) K/mm3 RBC 4.71 (3.98-5.22) M/mm3 Hgb 12.5 (11.2-15.7) gm/dl Hct 39.3 (34.1-44.9) % MCV 83.4 (79.4-94.8) fl MCH 26.5 (25.6-32.2) pg MCHC 31.8 L (32.2-35.5) g/dl RDW Std Deviation 46.9 H (36.4-46.3) fL Plt Count 282 (182-369) K/mm3 MPV 10.8 (9.4-12.3) fl Neut % (Auto) 63.1 (34.0-71.1) % Lymph % (Auto) 26.3 (19.3-51.7) % [place] % (Auto) 8.6 (4.7-12.5) % Eos % (Auto) 1.4 (0.7-5.8) Baso % (Auto) 0.4 (0.1-1.2) % Neut # (Auto) 6.15 H (1.56-6.13) K/mm3 Lymph # (Auto) 2.57 (1.18-3.74) K/mm3 [place] # (Auto) 0.84 H (0.24-0.36) K/mm3 Eos # (Auto) 0.14 (0.04-0.36) K/mm3 Baso # (Auto) 0.04 (0.01-0.08) K/mm3 Sodium 143 (136-145) mEq/L Potassium 3.7 (3.5-5.1) mEq/L Chloride 105 (98-107) mEq/L Carbon Dioxide 29 (21-32) mEq/L Anion Gap 12.7 (5-15) BUN 11 (7-18) mg/dL Creatinine 0.3 L (0.55-1.02) mg/dL Est Cr Clr Drug Dosing 281.63 mL/min Estimated GFR (MDRD) > 60 (>60) mL/min BUN/Creatinine Ratio 36.7 H (14-18) Glucose 84 (70-99) mg/dL Calcium 8.7 (8.5-10.1) mg/dL Total Bilirubin 0.8 (0.2-1.0) mg/dL AST 21 (15-37) U/L ALT 43 (14-59) U/L Alkaline Phosphatase 77 (46-116) U/L Total Protein 7.3 (6.4-8.2) g/dl Albumin 3.4 (3.4-5.0) g/dl Globulin 3.9 gm/dL Albumin/Globulin Ratio 0.9 L (1-2) HCG, Quant 1601.0 mIU/mL Urine Color Yellow (Yellow) Urine Appearance Clear (Clear) Urine pH 7.0 (5.0-8.0) Ur Specific Eure > or = 1.030 (1.005-1.030) Urine Protein Negative (Negative) Urine Glucose (UA) Negative (Negative) Urine Ketones Negative (Negative) Urine Occult Blood 3+ H (Negative) Urine Nitrite Negative (Negative) Urine Bilirubin Negative (Negative) Urine Urobilinogen 0.2 (0.2-1.0) Ur Leukocyte Esterase Negative (Negative) Urine RBC 5-10 H (0-5) /hpf Urine WBC 0-5 (0-5) /hpf Ur Squamous Epith Cells 0-5 (0-5) /hpf Calcium Oxalate Crystal Rare H (NONE) Amorphous Sediment Few H (NOT SEEN) /hpf Urine Bacteria Many H (FEW) /hpf Urine Mucus Few (FEW) /hpf Blood Type 02/11/21 Range/Units 15:55 WBC (3.98-10.04) K/mm3 RBC (3.98-5.22) M/mm3 Hgb (11.2-15.7) gm/dl Hct (34.1-44.9) % MCV (79.4-94.8) fl MCH (25.6-32.2) pg MCHC (32.2-35.5) g/dl RDW Std Deviation (36.4-46.3) fL Plt Count (182-369) K/mm3 MPV (9.4-12.3) fl Neut % (Auto) (34.0-71.1) % Lymph % (Auto) (19.3-51.7) % [place] % (Auto) (4.7-12.5) % Eos % (Auto) (0.7-5.8) Baso % (Auto) (0.1-1.2) % Neut # (Auto) (1.56-6.13) K/mm3 Lymph # (Auto) (1.18-3.74) K/mm3 [place] # (Auto) (0.24-0.36) K/mm3 Eos # (Auto) (0.04-0.36) K/mm3 Baso # (Auto) (0.01-0.08) K/mm3 Sodium (136-145) mEq/L Potassium (3.5-5.1) mEq/L Chloride (98-107) mEq/L Carbon Dioxide (21-32) mEq/L Anion Gap (5-15) BUN (7-18) mg/dL Creatinine (0.55-1.02) mg/dL Est Cr Clr Drug Dosing mL/min Estimated GFR (MDRD) (>60) mL/min BUN/Creatinine Ratio (14-18) Glucose (70-99) mg/dL Calcium (8.5-10.1) mg/dL Total Bilirubin (0.2-1.0) mg/dL AST (15-37) U/L ALT (14-59) U/L Alkaline Phosphatase (46-116) U/L Total Protein (6.4-8.2) g/dl Albumin (3.4-5.0) g/dl Globulin gm/dL Albumin/Globulin Ratio (1-2) HCG, Quant mIU/mL Urine Color (Yellow) Urine Appearance (Clear) Urine pH (5.0-8.0) Ur Specific Eure (1.005-1.030) Urine Protein (Negative) Urine Glucose (UA) (Negative) Urine Ketones (Negative) Urine Occult Blood (Negative) Urine Nitrite (Negative) Urine Bilirubin (Negative) Urine Urobilinogen (0.2-1.0) Ur Leukocyte Esterase (Negative) Urine RBC (0-5) /hpf Urine WBC (0-5) /hpf Ur Squamous Epith Cells (0-5) /hpf Calcium Oxalate Crystal (NONE) Amorphous Sediment (NOT SEEN) /hpf Urine Bacteria (FEW) /hpf Urine Mucus (FEW) /hpf Blood Type O POSITIVE - Re-Assessments/Exams Free Text/Narrative Re-Assessment/Exam: -year-old female presenting to the emergency department with concerns of possible miscarriage. Last menstrual period was January 12. She started spotting yesterday. Took it test and was found to be positive. She complains of some light spotting that she sees when wiping with toilet paper she does not need to wear a pad. Has some mild intermittent cramping as well. Had previous miscarriage in September. On exam, she does have some mild suprapubic tenderness. I have ordered blood work including quantitative hCG, urinalysis, and transvaginal ultrasound. 02/11/21 17:30 Hematology significant for quantitative hCG elevated at 1601. No evidence of urinary tract infection. Transvaginal ultrasound shows no sonographic evidence of viable intrauterine . Results discussed with patient. We are uncertain of how far along she is, therefore the ultrasound may be indicative of a lack of or early that is not visible at this point. Recommend follow-up with her SENIOR ELECTRICAL ENGINEER, Dr. Coats on Saturday. Discussed return precautions. Discharge instructions as documented. Departure - Departure Time of Disposition: 17:32 Disposition: Home, Self-Care 01 Condition: Good Clinical Impression: Threatened - Discharge Information *PRESCRIPTION DRUG MONITORING PROGRAM REVIEWED*: No *COPY OF PRESCRIPTION DRUG MONITORING REPORT IN PATIENT BRANDEN: No Instructions: Threatened Miscarriage, [id number] Referrals: Gina Romano NP [Primary Care Provider] - Delmis Coats MD [Physician] - Forms: ED Department Discharge Additional Instructions: You were seen in the emergency department today for vaginal spotting and intermittent cramping with a positive test. Work included blood work, urinalysis, and an ultrasound. Results of your work-up show that you are . Your hCG level today was 1601. Ultrasound did not show any findings of a gestational sac at this time. As we discussed, it is difficult to tell if this is because there is not a gestational sac or if it is too early for us to see it. Recommend following with Dr. Coats on Saturday. You may use Tylenol as needed for cramping or discomfort. If you should experience any worsening symptoms, please do not hesitate to return to the emergency department for re evaluation. Sepsis Event Note (ED) - Evaluation Sepsis Screening Result: No Definite Risk - Focused Exam Vital Signs: Vital Signs Temp Pulse Resp BP Pulse Ox 02/11/21 15:19 97.1 F 81 20 129/78 96 - My Orders Last 24 Hours: My Active Orders 02/11/21 15:42 OB Transvaginal [US] Stat - Assessment/Plan Last 24 Hours: My Active Orders 02/11/21 15:42 OB Transvaginal [US] Stat
--- NOTE | 2021-02-12 08:47 | US ---
First trimester obstetrical ultrasound: Multiple real-time images were obtained transvaginally. Comparison: No prior studies available. No intrauterine gestational sac is seen. Endometrial thickness is 1.7 cm. Right and left ovaries appear within normal limits. No discrete adnexal abnormality is appreciated. Impression: 1. No findings of intrauterine . No adnexal abnormalities are seen. Findings presumably represent miscarriage. Diagnostic code #3 I agree with preliminary report from [facility] finalized on 02/11/21, 6:23 PM CDT, code 1
== END 2021-02-11 17:40 | disposition home or self-care (01) ==
LOC: JD.ED 15:08
DX: O20.0 Threatened abortion (principal); Z3A.01 Less than 8 weeks gestation of pregnancy
CPT/HCPCS: 36415; 76817; 76817-26; 80053; 81001; 84702; 85025; 86900; 86901; 99283; 99284-25

== ENCOUNTER 2021-02-12 11:12 | Emergency (ER) | payer MEDICAID ==
[2021-02-12] MEDS ORDERED: Sodium Chloride 0.9% 1,000 ML IV STA (11:51)
[2021-02-12] MEDS ORDERED: Sodium Chloride 0.9% 10 ML Syringe FLUSH PRN (11:51)
--- NOTE | 2021-02-12 13:23 | EDM.PDOC ---
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 The patient was seen here yesterday and her HCG was 1600 but there was nothing seen on US in the uterus or adnexa. It appears she is having a miscarriage. She is AB1 and her LNMP is January 12. She sees Dr Coats. She has more cramping and bleeding. She also felt lightheaded. Onset: Gradual Duration: Day(s): (2) Location: Reports: Abdomen, Pelvis Quality: Reports: Other (cramping) Severity: Severe Improves with: Reports: None Worsens with: Reports: None Associated Symptoms: Reports: No Other Symptoms Abdominal Pain Score (Numeric/FACES): 5 - Related Data Allergies Allergy/AdvReac Type Severity Reaction Status Date / Time No Known Allergies Allergy Verified 01/23/21 18:40 Home Meds: Home Meds Hydrocodone/Acetaminophen [Hydrocodone-Acetamin 5-325 mg] 1 - 2 each PO Q6H PRN #10 tablet 02/12/21 [Rx] Past Medical History HEENT 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: Other (See Below) Other HEENT History: cysts in sinuses Gastrointestinal 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: GERD 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 EVALUATOR 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: , 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 Other VOCATIONAL EVALUATOR History: cervical dysplasia, Colposcopy + HPV; all vaginal deliveries Musculoskeletal 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: Arthritis, Fibromyalgia, RA, Other (See Below) Other Musculoskeletal History: Bone Spur in L Hip Neurological 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: Seizure Other Neuro History: petit mal seizures as child Psychiatric 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: Anxiety, Depression Endocrine/Metabolic 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: Obesity/BMI 30+ - Infectious Disease History Infectious Disease 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: Chicken Pox - Past Surgical History Dermatological Surgical 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: Other (See Below) Social & Family History - Family History Family Medical History: Unobtainable - Caffeine Use Caffeine Use: Reports: Coffee, Tea - Recreational Drug Use Recreational Drug Use: No - Living Situation & Occupation Living situation: Reports: , with Spouse, with Family ED ROS GENERAL - Review of Systems Review Of Systems: See Below Constitutional: Reports: No Symptoms HEENT: Reports: No Symptoms Respiratory: Reports: No Symptoms Cardiovascular: Reports: No Symptoms Endocrine: Reports: No Symptoms GI/Abdominal: Reports: Abdominal Pain. Denies: Nausea, Vomiting : Reports: Pain ED EXAM - Physical Exam Exam: See Below Exam Limited By: No Limitations General Appearance: Alert, No Apparent Distress Ears: Normal External Exam Nose: Normal Inspection Head: Atraumatic, Normocephalic Respiratory/Chest: No Respiratory Distress, Lungs Clear, Normal Breath Sounds Cardiovascular: Regular Rate, Rhythm, No Edema, No Murmur GI/Abdominal Exam: Soft, Non-Tender, No Organomegaly, No Mass Extremities: Normal Inspection Neurological: Alert, Oriented, No Motor/Sensory Deficits Course - Vital Signs Last Recorded V/S: Last Vital Signs Temp 97.3 F 02/12/21 12:03 Pulse 60 02/12/21 12:03 Resp 20 02/12/21 12:03 BP 128/71 02/12/21 11:26 Pulse Ox 96 02/12/21 12:03 - Orders/Labs/Meds Orders: Active Orders 24 hr Category Date Time Status Peripheral IV Care [RC] . DIRECTED Care 02/12/21 11:51 Active Sodium Chloride 0.9% [Saline Flush] Med 02/12/21 11:51 Active 10 ml FLUSH ASDIRECTED PRN Peripheral IV Insertion Adult [OM.PC] Stat Oth 02/12/21 11:51 Ordered Medication Orders Sodium Chloride (Sodium Chloride 0.9% 10 Ml Syringe) 10 ml FLUSH ASDIRECTED PRN PRN Reason: Keep Vein Open Last Admin: 02/12/21 12:33 Dose: 10 ml Documented by: ROSANA Labs: Laboratory Tests 02/12/21 02/12/21 Range/Units 11:25 11:25 WBC 9.78 (3.98-10.04) K/mm3 RBC 4.87 (3.98-5.22) M/mm3 Hgb 13.0 (11.2-15.7) gm/dl Hct 40.5 (34.1-44.9) % MCV 83.2 (79.4-94.8) fl MCH 26.7 (25.6-32.2) pg MCHC 32.1 L (32.2-35.5) g/dl RDW Std Deviation 46.9 H (36.4-46.3) fL Plt Count 307 (182-369) K/mm3 MPV 10.7 (9.4-12.3) fl Neut % (Auto) 66.6 (34.0-71.1) % Lymph % (Auto) 25.3 (19.3-51.7) % [place] % (Auto) 6.0 (4.7-12.5) % Eos % (Auto) 1.5 (0.7-5.8) Baso % (Auto) 0.4 (0.1-1.2) % Neut # (Auto) 6.51 H (1.56-6.13) K/mm3 Lymph # (Auto) 2.47 (1.18-3.74) K/mm3 [place] # (Auto) 0.59 H (0.24-0.36) K/mm3 Eos # (Auto) 0.15 (0.04-0.36) K/mm3 Baso # (Auto) 0.04 (0.01-0.08) K/mm3 Sodium 141 (136-145) mEq/L Potassium 3.9 (3.5-5.1) mEq/L Chloride 105 (98-107) mEq/L Carbon Dioxide 26 (21-32) mEq/L Anion Gap 13.9 (5-15) BUN 10 (7-18) mg/dL Creatinine 0.7 (0.55-1.02) mg/dL Est Cr Clr Drug Dosing 120.70 mL/min Estimated GFR (MDRD) > 60 (>60) mL/min BUN/Creatinine Ratio 14.3 (14-18) Glucose 91 (70-99) mg/dL Calcium 8.5 (8.5-10.1) mg/dL Total Bilirubin 0.8 (0.2-1.0) mg/dL AST 19 (15-37) U/L ALT 45 (14-59) U/L Alkaline Phosphatase 82 (46-116) U/L Total Protein 7.6 (6.4-8.2) g/dl Albumin 3.5 (3.4-5.0) g/dl Globulin 4.1 gm/dL Albumin/Globulin Ratio 0.9 L (1-2) HCG, Quant 1538.0 mIU/mL Meds: Medications Generic Name Dose Route Start Last Admin Trade Name Freq PRN Reason Stop Dose Admin Sodium Chloride 10 ml 02/12/21 11:51 02/12/21 12:33 Sodium Chloride 0.9% 10 Ml Syringe FLUSH 10 ml ASDIRECTED PRN Administration Keep Vein Open Discontinued Medications Generic Name Dose Route Start Last Admin Trade Name [place] PRN Reason Stop Dose Admin Sodium Chloride 1,000 mls @ 1,000 mls/hr 02/12/21 11:51 02/12/21 12:00 Normal Saline IV 02/12/21 12:50 1,000 mls/hr .BOLUS STA Administration - Re-Assessments/Exams Free Text/Narrative Re-Assessment/Exam: 02/12/21 13:21 I ordered an IV NS 1L bolus and labs. Her CBC and CMP look good. Her HCG yesterday was 1601 and today it is 1538. She is O positive. Her US did not show anything in the uterus or adnexa. I called Dr Oleary and she wanted the patient to follow up with Dr Coats this week. Departure - Departure Time of Disposition: 13:30 Disposition: Home, Self-Care 01 Condition: Good Clinical Impression: Complete - Discharge Information *PRESCRIPTION DRUG MONITORING PROGRAM REVIEWED*: Not Applicable *COPY OF PRESCRIPTION DRUG MONITORING REPORT IN PATIENT BRANDEN: Not Applicable Prescriptions: Hydrocodone/Acetaminophen [Hydrocodone-Acetamin 5-325 mg] 1 - 2 each PO Q6H PRN #10 tablet PRN Reason: Pain Referrals: Gina Romano NP [Primary Care Provider] - Delmis Coats MD [Physician] - 1 Week Additional Instructions: Drink plenty of fluids. Take ibuprofen or aleve for the pain. If that does not work, try the hydrocodone. Follow up with Dr Coats this week. Please return if you are worse such as bleeding enough to fill a pad an hour for a few hours or more pain. Sepsis Event Note (ED) - Evaluation Sepsis Screening Result: No Definite Risk - Focused Exam Vital Signs: Vital Signs Temp Pulse Resp BP Pulse Ox 02/12/21 12:03 97.3 F 60 20 96 02/12/21 11:26 96.9 F 71 20 128/71 97 - My Orders Last 24 Hours: My Active Orders 02/12/21 11:51 Peripheral IV Care [RC] . DIRECTED Sodium Chloride 0.9% [Saline Flush] 10 ml FLUSH ASDIRECTED PRN Peripheral IV Insertion Adult [OM.PC] Stat - Assessment/Plan Last 24 Hours: My Active Orders 02/12/21 11:51 Peripheral IV Care [RC] . DIRECTED Sodium Chloride 0.9% [Saline Flush] 10 ml FLUSH ASDIRECTED PRN Peripheral IV Insertion Adult [OM.PC] Stat
== END 2021-02-12 13:44 | disposition home or self-care (01) ==
LOC: JD.ED 11:12
DX: O03.9 Complete or unspecified spontaneous abortion without complication (principal)
CPT/HCPCS: 36415; 80053; 84702; 85025; 99284; J7030; 99283

== ENCOUNTER 2023-02-24 13:33 | Emergency (ER) | payer SELFPAY | END 2023-02-24 15:24 | disposition home or self-care (01) | LOC: JD.ED 13:33 | DX: L08.9 Local infection of the skin and subcutaneous tissue, unspecified (principal); F17.210 Nicotine dependence, cigarettes, uncomplicated; E66.9 Obesity, unspecified; Z79.899 Other long term (current) drug therapy; Z68.38 Body mass index [BMI] 38.0-38.9, adult | CPT/HCPCS: 99282; 99283 ==

== ENCOUNTER 2023-04-16 18:18 | Emergency (ER) | payer SELFPAY ==
[2023-04-16] MEDS ORDERED: Ketorolac 60 MG/2 ML SDV IM ONE (19:13)
== END 2023-04-16 19:30 | disposition left against medical advice (07) ==
LOC: JD.ED 18:18
DX: M54.41 Lumbago with sciatica, right side (principal); G89.29 Other chronic pain; E66.9 Obesity, unspecified; Z79.899 Other long term (current) drug therapy; Z68.38 Body mass index [BMI] 38.0-38.9, adult
CPT/HCPCS: 99283

== ENCOUNTER 2023-07-01 00:03 | Emergency (ER) | payer MEDICAID ==
[2023-07-01] MEDS ORDERED: Amoxicillin/Clavulanate K 875-125 MG Tab PO ONE (01:19)
[2023-07-01] MEDS ORDERED: Acetaminophen/oxyCODONE 325-5 MG Tab PO ONE (01:20)
== END 2023-07-01 02:24 | disposition home or self-care (01) ==
LOC: JD.ED 00:03
DX: K04.7 Periapical abscess without sinus (principal); E66.9 Obesity, unspecified; F17.210 Nicotine dependence, cigarettes, uncomplicated; Z79.2 Long term (current) use of antibiotics; Z79.899 Other long term (current) drug therapy; Z79.891 Long term (current) use of opiate analgesic; Z68.41 Body mass index [BMI] 40.0-44.9, adult
CPT/HCPCS: 99282; A9270

== ENCOUNTER 2023-08-18 18:22 | Emergency (ER) | payer MEDICAID ==
[2023-08-18] MEDS ORDERED: Ibuprofen 800 MG Tab PO ONE (18:52)
[2023-08-18] MEDS ORDERED: Codeine/Promethazine 10-6.25 MG/5 ML Syrup 5 ML UD Cup PO ONE (18:53)
[2023-08-18 19:21] LABS: CORONAVIRUS COVID-19 NAA NEGATIVE (NEGATIVE); INFLUENZA A NAA NEGATIVE (NEGATIVE); RESPIRATORY SYNCYTIAL VIR NAA NEGATIVE (NEGATIVE)
== END 2023-08-18 19:36 | disposition home or self-care (01) ==
LOC: JD.ED 18:22
DX: R05.1 Acute cough (principal); M54.9 Dorsalgia, unspecified; F17.210 Nicotine dependence, cigarettes, uncomplicated; E66.9 Obesity, unspecified; Z79.899 Other long term (current) drug therapy
CPT/HCPCS: 0241U; 71046; 99283; A9270

== ENCOUNTER 2024-01-04 11:53 | Emergency (ER) | payer MEDICAID ==
[2024-01-04] MEDS: diphenhydrAMINE 50 MG Cap PO ONE (12:17)
[2024-01-04] MEDS: methylPREDNISolone Sodium Succinate 40 MG/1 ML SDV IM ONE (12:17)
== END 2024-01-04 13:05 | disposition home or self-care (01) ==
LOC: JD.ED 11:53
DX: R21 Rash and other nonspecific skin eruption (principal); T36.4X5A Adverse effect of tetracyclines, initial encounter; Z88.6 Allergy status to analgesic agent; Z79.899 Other long term (current) drug therapy
CPT/HCPCS: 96372; 99283; J2919; Q0163

== ENCOUNTER 2024-03-29 18:01 | Emergency (ER) | payer SELFPAY | END 2024-03-29 18:12 | disposition left against medical advice (07) | LOC: JD.ED 18:01 | DX: Z53.21 Procedure and treatment not carried out due to patient leaving prior to being seen by health care provider (principal) ==

== ENCOUNTER 2024-04-21 14:48 | Emergency (ER) | payer MEDICAID, OTHER | END 2024-04-21 16:45 | disposition home or self-care (01) | LOC: JD.ED 14:48 | DX: M54.50 Low back pain, unspecified (principal); M79.7 Fibromyalgia; F17.210 Nicotine dependence, cigarettes, uncomplicated; E66.9 Obesity, unspecified; Z79.899 Other long term (current) drug therapy; Z88.1 Allergy status to other antibiotic agents; Z91.048 Other nonmedicinal substance allergy status | CPT/HCPCS: 72100; 72100-26; 99283 ==